=== PATIENT | female | born 1980 | race Native Hawaiian/Other Pacific Islander ===

== ENCOUNTER 2016-10-28 09:48 | Emergency (ER) | payer MEDICAID ==
[2016-10-28 09:56] VITALS: BP 106/74; PULSE 88; RESP 16; TEMP 98.4; O2SAT 100
--- NOTE | 2016-10-28 10:25 | C.PDOC ---
History Of Present Illness 36 yr old female presents to the ER with complaints of sore throat for the past 5 days. Patient reports of painful sores inside of her mouth, states she was given Azithromycin by her PMD but the symptoms have not improved and it is painful to eat or drink. Patient denies fever, chills, throat swelling, nausea, vomiting or neck pain. Time Seen by Provider: 10/28/16 10:04 Chief Complaint (Nursing): Dental Pain History Per: Patient History/Exam Limitations: no limitations Onset/Duration Of Symptoms: Days (5) Past Medical History Reviewed: Historical Data, Nursing Documentation, Vital Signs Vital Signs: Last Vital Signs Temp 98.4 F 10/28/16 09:55 Pulse 88 10/28/16 09:55 Resp 16 10/28/16 09:55 BP 106/74 10/28/16 09:55 Pulse Ox 100 10/28/16 10:26 - Medical History PMH: Depression Family History: States: No Known Family Hx - Social History Hx Alcohol Use: No Hx Substance Use: No - Immunization History Hx Tetanus Toxoid Vaccination: No Hx Influenza Vaccination: Yes Hx Pneumococcal Vaccination: No Review Of Systems Except As Marked, All Systems Reviewed And Found Negative. Constitutional: Negative for: Fever, Chills ENT: Positive for: Throat Pain (Sore throat), Other ((+) Painful sores inside of mouth.). Negative for: Throat Swelling Gastrointestinal: Negative for: Nausea, Vomiting Musculoskeletal: Negative for: Neck Pain Physical Exam - Physical Exam Appears: Non-toxic, No Acute Distress, Other ((+) Speaking in full sentences.) Skin: Warm, Dry, No Rash Head: Atraumatic, Normacephalic Oral Mucosa: Moist, No Drooling, Other ((+) Multiple aphthous ulcers.) Tongue: Normal Appearing, No Swelling, No Lesions Lips: Normal Appearing, No Swelling, No Lesions Throat: Normal, No Erythema, No Exudate, No Drooling Neck: Normal, Normal ROM, Supple Chest: Symmetrical, No Tenderness Cardiovascular: Rhythm Regular, No Murmur Respiratory: Normal Breath Sounds, No Rales, No Rhonchi, No Stridor, No Wheezing Extremity: Normal ROM, No Swelling Neurological/Psych: Oriented x3, Normal Speech, Normal Motor ED Course And Treatment O2 Sat by Pulse Oximetry: 100 (RA) Pulse Ox Interpretation: Normal Progress Note: PLAN: Lidocaine Viscous PO. Patient is informed it is viral and treated with lidocaine viscous. Patient is also sent home with Rx for lidocaine viscous. Instructed patient to follow up with PMD for further evaluation. Return to ED if symptoms worsened. Disposition Counseled Patient/Family Regarding: Diagnosis, Need For Followup, Rx Given - Disposition Referrals: Shaik De Jesus MD [Staff Provider] - Disposition: HOME/ ROUTINE Disposition Time: 10:35 Condition: STABLE Additional Instructions: FOLLOW UP WITH YOUR DOCTOR IN 1-2 DAYS USE MEDICATION NEEDED AVOID SPICY/ACIDIC FOODS DRINK PLENTY OF CLEAR FLUIDS RETURN TO ER IF SYMPTMS WORSEN Prescriptions: Lidocaine 2% Viscous 20 ml MM Q6 PRN #1 bottle PRN Reason: ORAL LESIONS/PAIN Instructions: Gingivostomatitis (ED) Forms: [employer] (Latvian) Print Language: KHMER - Clinical Impression Clinical Impression: Mouth sores, Gingivostomatitis - Scribe Statement The provider has reviewed the documentation as recorded by the Scribe Bindu Ceja Provider Attestation: All medical record entries made by the Swatiiboh were at my direction and personally dictated by me. I have reviewed the chart and agree that the record accurately reflects my personal performance of the history, physical exam, medical decision making, and the department course for this patient. I have also personally directed, reviewed, and agree with the discharge instructions and disposition.
== END 2016-10-28 10:40 | disposition home or self-care (01) ==
LOC: C.ER 09:48
DX: K05.10 Chronic gingivitis, plaque induced (principal); K13.79 Other lesions of oral mucosa

== ENCOUNTER 2016-10-30 16:23 | Emergency (ER) | payer MEDICAID ==
[2016-10-30 16:31] VITALS: O2SAT 99
[2016-10-30] MEDS ORDERED: Sodium Chloride 0.9% 1,000 ML IV ONE (19:30)
[2016-10-30 19:51] LABS: BASO # 0.1 K/uL (0.0-0.2); BASO % 0.8 % (0.0-2.0); EOS # 0.9 K/uL (0.0-0.7); EOS % 9.1 % (0.0-4.0); HEMATOCRIT 39.4 % (34.0-47.0); LYMPH # 2.3 K/uL (1.0-4.3); LYMPH % 24.2 % (20.0-40.0); MEAN CORPUSCULAR HEMOGLOBIN 25.8 pg (27.0-31.0); MEAN PLATELET VOLUME 8.9 fL (7.2-11.7); MONO # 0.6 K/uL (0.0-0.8); MONO % 6.7 % (0.0-10.0); NRBC % 0.1 % (0.0-2.0); RED CELL DISTRIBUTION WIDTH 13.7 % (11.5-14.5); WHITE BLOOD COUNT 9.6 K/uL (4.8-10.8)
[2016-10-30 19:57] LABS: RBC URINE 54 /hpf (0-3); URINE BACTERIA RARE (<OCC); URINE BILIRUBIN NEGATIVE (NEGATIVE); URINE BLOOD 1+ (NEGATIVE); URINE COLOR Yellow (YELLOW); URINE GLUCOSE (UA) NORMAL (Normal); URINE KETONE NEGATIVE (NEGATIVE); URINE LEUKOCYTE ESTERASE 3+ Leu/uL (Negative); URINE PROTEIN NEGATIVE (NEGATIVE); URINE UROBILINOGEN NORMAL mg/dL (0.2-1.0); WBC URINE 94 /hpf (0-5)
[2016-10-30 20:02] LABS: ALKALINE PHOSPHATASE 113 U/L (38-126); ALT/SGPT 31 U/L (9-52); AST/SGOT 25 U/L (14-36); BILIRUBIN,TOTAL 0.8 mg/dL (0.2-1.3); BLOOD UREA NITROGEN 11 mg/dL (7-17); CALCIUM 8.8 mg/dl (8.6-10.4); CARBON DIOXIDE 23 mmol/L (22-30); CHLORIDE 103 mmol/L (98-107); GFR AFRICAN-AMERICAN > 60; GLUCOSE,RANDOM 89 mg/dL (65-105); POTASSIUM 3.9 mmol/L (3.6-5.2); SODIUM 141 mmol/L (132-148); TOTAL PROTEIN 7.7 g/dL (6.3-8.3)
--- NOTE | 2016-10-30 20:40 | C.PDOC ---
Time Seen by Provider: 10/30/16 17:05 Chief Complaint (Nursing): ENT Problem History Per: Patient, Family Onset/Duration Of Symptoms: Days (about 1 week) Current Symptoms Are (Timing): Still Present Location Of Pain: Other (Mouth) Associated Symptoms: Fever, Sore Throat, Other (Mouth sores) Severity: Moderate Additional History Per: Prior Records Past Medical History Reviewed: Historical Data, Nursing Documentation, Vital Signs Vital Signs: Last Vital Signs Temp 99.6 F 10/30/16 19:15 Pulse 109 H 10/30/16 16:28 Resp 18 10/30/16 16:28 BP 122/82 10/30/16 16:28 Pulse Ox 99 10/30/16 16:28 - Medical History PMH: Depression Family History: States: Unknown Family Hx - Social History Hx Alcohol Use: No Hx Substance Use: No - Immunization History Hx Tetanus Toxoid Vaccination: No Hx Influenza Vaccination: Yes Hx Pneumococcal Vaccination: No Review Of Systems Except As Marked, All Systems Reviewed And Found Negative. Constitutional: Positive for: Fever. Negative for: Weakness Eyes: Negative for: Conjunctivae Inflammation, Eyelid Inflammation, Redness ENT: Positive for: Mouth Pain, Throat Pain Cardiovascular: Negative for: Chest Pain Respiratory: Negative for: Cough, Shortness of Breath Gastrointestinal: Negative for: Vomiting, Abdominal Pain Genitourinary: Positive for: Dysuria Musculoskeletal: Negative for: Neck Pain Skin: Negative for: Rash Neurological: Negative for: Weakness, Numbness, Seizures, Altered Mental Status Physical Exam - Physical Exam Appears: Non-toxic, No Acute Distress Skin: Normal Color, Warm, Dry, No Rash Head: Atraumatic, Normacephalic Eye(s): bilateral: Normal Inspection, PERRL, EOMI Oral Mucosa: Moist, No Drooling, No Trismus Tongue: Lesions, Fissured, Erythema Gingiva: Erythema, Ulceration Throat: Erythema, No Drooling, No Mass Neck: Normal ROM, Supple Lymphatic: No Adenopathy Cardiovascular: Rhythm Regular Respiratory: Normal Breath Sounds, No Accessory Muscle Use, No Stridor Gastrointestinal/Abdominal: Soft, No Tenderness Back: No CVA Tenderness Extremity: Normal ROM Neurological/Psych: Oriented x3, Normal Motor, Normal Sensation ED Course And Treatment - Laboratory Results Result Diagrams: 10/30/16 19:48 10/30/16 19:48 Interpretation Of Abnormal: UTI, otherwise unremarkable. Urine POC: Negative O2 Sat by Pulse Oximetry: 99 Pulse Ox Interpretation: Normal Progress - Interventions Interventions:: Observation, Intravenous fluid - Medications Administered Intravenous: NSAID - Data Reviewed Data Reviewed: Lab, Old records - Patient Status Patient status: Mostly improved - Continuity of Care Discussed patient case with:: Patient, ED Nurse - Patient Plan Patient Plan: Discharge, F/U with PCP Disposition Counseled Patient/Family Regarding: Studies Performed, Diagnosis, Need For Followup, Rx Given - Disposition Referrals: Shaik De Jesus MD [Staff Provider] - Disposition: HOME/ ROUTINE Disposition Time: 20:44 Condition: IMPROVED Additional Instructions: Drink plenty of fluids. Follow up with your doctor for further evaluation and treatment. Return to the ER if you develop trouble breathing or swallowing, worsening of symptoms or if you have any other concerns. Prescriptions: Cephalexin [cephalexin] 500 mg PO BID #14 cap Naproxen [Naprosyn] 1 tab PO BID PRN #20 tab PRN Reason: Pain Instructions: Gingivostomatitis (ED), Urinary Tract Infection in Women (ED) Forms: [employer] (American) - Clinical Impression Clinical Impression: Gingivostomatitis, Mouth sores, UTI (urinary tract infection)
[2016-10-30] MEDS ORDERED: Sodium Chloride 0.9% 1,000 ML ONE (20:46)
[2016-10-30 21:27] VITALS: BP 97/62; PULSE 76; RESP 16; TEMP 99
== END 2016-10-30 21:26 | disposition home or self-care (01) ==
LOC: C.ER 16:23
DX: K05.10 Chronic gingivitis, plaque induced (principal); N39.0 Urinary tract infection, site not specified
CPT/HCPCS: 80053; 81001; 84703; 85025; 86308; 87070; 87430; 96361; 96374; 99283; J1885; J7040

== ENCOUNTER 2016-11-08 12:10 | Inpatient (IN) | payer MEDICAID ==
[2016-11-08 14:47] LABS: BASO % 0.5 % (0.0-2.0); EOS # 0.9 K/uL (0.0-0.7); EOS % 12.2 % (0.0-4.0); HEMATOCRIT 40.6 % (34.0-47.0); LYMPH # 1.4 K/uL (1.0-4.3); LYMPH % 18.4 % (20.0-40.0); MEAN CELL VOLUME 78.9 fL (81.0-99.0); MEAN CORPUSCULAR HEMOGLOBIN 25.9 pg (27.0-31.0); MEAN CORPUSCULAR HGB CONC 32.9 g/dL (33.0-37.0); MEAN PLATELET VOLUME 8.2 fL (7.2-11.7); MONO # 0.6 K/uL (0.0-0.8); RED CELL DISTRIBUTION WIDTH 13.4 % (11.5-14.5); WHITE BLOOD COUNT 7.7 K/uL (4.8-10.8)
[2016-11-08] MEDS ORDERED: Sodium Chloride 0.9% 1,000 ML IV ONE (14:53)
[2016-11-08 14:56] LABS: CHLORIDE 100 mmol/L (98-107); POTASSIUM 4.4 mmol/L (3.6-5.2); SODIUM 140 mmol/L (132-148)
[2016-11-08 14:58] LABS: GFR AFRICAN-AMERICAN > 60
[2016-11-08 14:59] LABS: ALKALINE PHOSPHATASE 132 U/L (38-126); ALT/SGPT 46 U/L (9-52); AST/SGOT 27 U/L (14-36); BILIRUBIN,TOTAL 0.5 mg/dL (0.2-1.3); BLOOD UREA NITROGEN 11 mg/dL (7-17); CARBON DIOXIDE 24 mmol/L (22-30); GLUCOSE,RANDOM 89 mg/dL (65-105); TOTAL PROTEIN 7.6 g/dL (6.3-8.3)
[2016-11-08 15:00] LABS: CALCIUM 8.7 mg/dl (8.6-10.4)
--- NOTE | 2016-11-08 16:17 | C.PDOC ---
History Of Present Illness 36 y/o female presents to Emergency Department for evaluation of burning/ painful sores in her mouth that developed 15 days ago. Pt states that she is not able to eat anything due to the pain in her mouth and throat. Pt has been seen in ER twice for same complaints, and also seen by PMD who started her on PO Valtrex. Symptoms still have not improved. She denies fever, sensation of throat closing up, chest pain, SOB, palpitations, cough. Time Seen by Provider: 11/08/16 13:47 Chief Complaint (Nursing): Abnormal Skin Integrity History Per: Patient History/Exam Limitations: None Onset/Duration Of Symptoms: Days, Persistent Current Symptoms Are (Timing): Still Present Quality (Mouth/Throat): Tenderness, Redness. denies: Drainage Symptoms Have Been: Continuous Severity: Moderate Past Medical History Reviewed: Historical Data, Nursing Documentation, Vital Signs Vital Signs: Last Vital Signs Temp 98.3 F 11/11/16 07:00 Pulse 61 11/11/16 07:00 Resp 20 11/11/16 07:00 BP 101/67 11/11/16 07:00 Pulse Ox 98 11/11/16 07:00 - Medical History PMH: Depression - [facility] Procedures INSPECTION OF LARYNX, ENDO (11/08/16) Family History: States: No Known Family Hx - Social History Hx Alcohol Use: No Hx Substance Use: No - Immunization History Hx Tetanus Toxoid Vaccination: No Hx Influenza Vaccination: Yes Hx Pneumococcal Vaccination: No Review Of Systems Except As Marked, All Systems Reviewed And Found Negative. Constitutional: Negative for: Fever, Chills ENT: Positive for: Mouth Pain (painful sores in mouth), Throat Pain. Negative for: Ear Pain, Nose Discharge, Nose Congestion, Throat Swelling Cardiovascular: Negative for: Chest Pain, Palpitations Respiratory: Negative for: Cough, Shortness of Breath Gastrointestinal: Negative for: Nausea, Vomiting, Abdominal Pain, Diarrhea Skin: Negative for: Rash Neurological: Negative for: Headache, Dizziness Physical Exam - Physical Exam Appears: Well, Non-toxic, In Acute Distress (in mild pain) Skin: Normal Color, Warm, Dry, No Rash Head: Normacephalic Eye(s): bilateral: Normal Inspection Oral Mucosa: Moist, No Drooling, Other (diffuse aphthous ulcers on oral mucosa) Tongue: No Swelling, No Lesions, Other (white coating on the tongue) Lips: Normal Appearing, No Swelling, No Lesions Throat: Erythema, No Exudate, No Drooling Neck: Normal ROM, Supple Lymphatic: No Adenopathy Cardiovascular: Rhythm Regular Respiratory: Normal Breath Sounds, No Accessory Muscle Use, No Rales, No Rhonchi , No Stridor, No Wheezing Extremity: Normal ROM Neurological/Psych: Oriented x3 ED Course And Treatment - Laboratory Results Result Diagrams: 11/11/16 06:56 11/11/16 06:56 O2 Sat by Pulse Oximetry: 100 (on RA) Pulse Ox Interpretation: Normal Progress Note: Blood work ordered and reviewed. Pt was given Lidocaine PO, Toradol IVP, and IV NS bolus. Patient sent by PMD Dr. De Jesus for admission + ID consult with Dr. Phelps. - Physician Consult Information Physician Contacted: Tamar Swann Outcome Of Conversation: Discussed patient with Dr. Shahid Swann, agrees with admission for persistent gingostomatitis for ID consult with Dr. Phelps. Disposition - Disposition Disposition: HOSPITALIZED Disposition Time: 15:44 Condition: STABLE - Clinical Impression Clinical Impression: Decreased oral intake, Dehydration, Gingivostomatitis, Mouth sores - Scribe Statement The provider has reviewed the documentation as recorded by the Scribe Tawnya Swann All medical record entries made by the Scribe were at my direction and personally dictated by me. I have reviewed the chart and agree that the record accurately reflects my personal performance of the history, physical exam, medical decision making, and the department course for this patient. I have also personally directed, reviewed, and agree with the discharge instructions and disposition. Decision To Admit - Pt Status Changed To: Hospital Disposition Of: Inpatient - Admit Certification Admit to Inpatient:: After my assessment, the patient will require hospitalization for at least two midnights. This is because of the severity of symptoms shown, intensity of services needed, and/or the medical risk in this patient being treated as an outpatient. - InPatient: Physician Admission Certification: I certify that this patient requires 2 or more midnights of care for the following reason:: see notes - . Bed Request Type: Regular Admitting Physician: Tamar Swann Patient Diagnosis: Gingivostomatitis, Decreased oral intake, Dehydration
[2016-11-08] MEDS ORDERED: Home Med 1 UNIT (Naproxen [Naprosyn] 1 TAB) PO PRN (20:16)
--- NOTE | 2016-11-08 22:12 | CP.PCM.HP ---
Past Patient History - Infectious Disease Hx of Infectious Diseases: None - Past Medical History & Family History Past Medical History?: Yes - Past Social History Smoking Status: Never Smoked - CARDIAC Hx Cardiac Disorders: No - PULMONARY Hx Respiratory Disorders: No - NEUROLOGICAL Hx Neurological Disorder: No - HEENT Hx HEENT Problems: No - RENAL Hx Chronic Kidney Disease: No - ENDOCRINE/METABOLIC Hx Endocrine Disorders: No - HEMATOLOGICAL/ONCOLOGICAL Hx Blood Disorders: No - INTEGUMENTARY Hx Dermatological Problems: No - MUSCULOSKELETAL/RHEUMATOLOGICAL Hx Musculoskeletal Disorders: No Hx Falls: No - GASTROINTESTINAL Hx Gastrointestinal Disorders: No - GENITOURINARY/GYNECOLOGICAL Hx Genitourinary Disorders: No - PSYCHIATRIC Hx Depression: Yes Hx Substance Use: No - SURGICAL HISTORY Hx Surgeries: Yes Hx Tubal Ligation: Yes (b/l) - ANESTHESIA Hx Anesthesia: Yes Hx Anesthesia Reactions: No Hx Malignant Hyperthermia: No Has any member of the family had a problem w/ anesthesia?: No Meds Allergies/Adverse Reactions: Allergies Allergy/AdvReac Type Severity Reaction Status Date / Time No Known Allergies Allergy Verified 11/08/16 12:29 Results - Vital Signs Recent Vital Signs: Last Vital Signs Temp 98.8 F 11/08/16 20:07 Pulse 91 H 11/08/16 20:07 Resp 18 11/08/16 20:07 BP 111/68 11/08/16 20:07 Pulse Ox 98 11/08/16 20:07 - Labs Result Diagrams: 11/08/16 14:42 11/08/16 14:42 Labs: Laboratory Results - last 24 hr 11/08/16 11/08/16 11/08/16 14:42 14:42 14:42 WBC 7.7 RBC 5.15 Hgb 13.4 Hct 40.6 MCV 78.9 L MCH 25.9 L MCHC 32.9 L RDW 13.4 Plt Count 305 MPV 8.2 Neut % (Auto) 60.9 Lymph % (Auto) 18.4 L Grayson % (Auto) 8.0 Eos % (Auto) 12.2 H Baso % (Auto) 0.5 Neut # 4.7 Lymph # 1.4 Grayson # 0.6 Eos # 0.9 H Baso # 0.0 Sodium 140 Potassium 4.4 Chloride 100 Carbon Dioxide 24 Anion Gap 21 H BUN 11 Creatinine 0.7 Est GFR ( Amer) > 60 Est GFR (Non-Af Amer) > 60 Random Glucose 89 Calcium 8.7 Total Bilirubin 0.5 AST 27 ALT 46 Alkaline Phosphatase 132 H Total Protein 7.6 Albumin 3.8 Globulin 3.8 Albumin/Globulin Ratio 1.0 HIV 1&2 Antibody Screen Negative
[2016-11-08] MEDS: Piperacillin/Tazobact 3.375 GM in Sodium Chloride 100 ML IVPB SCH (22:44)
[2016-11-09 02:10] VITALS: RESP 20
[2016-11-09] MEDS: Piperacillin/Tazobact 3.375 GM in Sodium Chloride 100 ML IVPB SCH ×3 (05:49→21:57)
[2016-11-09] MEDS ORDERED: Pneumococcal 23-Valent Vaccine IM ONE (10:00)
[2016-11-09] MEDS ORDERED: Enoxaparin 40 mg Syringe SC SCH (10:00)
[2016-11-09] MEDS: Pantoprazole 40 mg EC Tab PO SCH (11:00)
[2016-11-09] MEDS: Mag&Al/Simet/Diphen/Lido 237 ML KIT PO SCH ×5 (11:00→22:01)
[2016-11-09] MEDS ORDERED: Naproxen 550 mg Tab PO PRN ×2 (11:07→11:43)
--- NOTE | 2016-11-09 12:55 | CP.PCM.CON ---
History of Present Illness - History of Present Illness History of Present Illness: 36 y/o female presents to Emergency Department for evaluation of burning and itching sores in her mouth that developed 15 days ago. Pt states that she is not able to eat anything due to the pain in her mouth and throat. Pt has been seen here twice with similar complaints. Pt states she has been taking the prescribed Cephalexin, and Naproxen without any improvement. Otherwise, patient denies throat swelling, fever, chills, cough, or shortness of breath. Review of Systems - Review of Systems All systems: reviewed and no additional remarkable complaints except - Constitutional Constitutional: As Per HPI - EENT Eyes: absent: As Per HPI, Blind Spots, Blurred Vision, Change in Vision, Decreased Night Vision, Diplopia, Discharge, Dry Eye, Exophthalmos, Floaters, Irritation, Itchy Eyes, Loss of Peripheral Vision, Pain, Photophobia, Requires Corrective Lenses, Sees Flashes, Spots in Vision, Tunnel Vision, Other Visual Disturbances, Loss of Vision, Other Ears: absent: As Per HPI, Decreased Hearing, Ear Discharge, Ear Pain, Tinnitus, Abnormal Hearing, Disequilibrium, Dizziness, Other Nose/Mouth/Throat: As Per HPI - Breasts Breasts: absent: As Per HPI, Change in Shape, Mass, Pain, Nipple Discharge, Nipple Inversion, Skin Changes, Swelling, Other - Cardiovascular Cardiovascular: absent: As Per HPI, Acrocyanosis, Chest Pain, Chest Pain at Rest , Chest Pain with Activity, Claudication, Diaphoresis, Dyspnea, Dyspnea on Exertion, Edema, Irregular Heart Rhythm, Pain Radiating to Arm/Neck/Jaw, Leg Edema, Leg Ulcers, Lightheadedness, Orthopnea, Palpitations, Paroxysmal Nocturnal Dyspnea, Pedal Edema, Radiating Pain, Rapid Heart Rate, Slow Heart Rate, Syncope, Other - Respiratory Respiratory: absent: As Per HPI, Cough, Dyspnea, Hemoptysis, Dyspnea on Exertion , Wheezing, Snoring, Stridor, Pain on Inspiration, Chest Congestion, Excessive Mucous Production, Change in Mucous Color, Pain with Coughing, Other - Gastrointestinal Gastrointestinal: absent: As Per HPI, Abdominal Pain, Belching, Bloating, Change in Bowel Habits, Change in Stool Character, Coffee Ground Emesis, Constipation, Cramping, Diarrhea, Dyspepsia, Dysphagia, Early Satiety, Excessive Flatus, Fecal Incontinence, Heartburn, Hematemesis, Hematochezia, Loose Stools, Melena, Nausea, Odynophagia, Temesmus, Vomiting, Other - Genitourinary Genitourinary: absent: As Per HPI, Change in Urinary Stream, Difficulty Urinating, Dysuria, Flank Pain, Hematuria, Pyuria, Nocturia, Urinary Incontinence, Urinary Frequency, Urinary Hesitance, Urinary Urgency, Voiding Freq/Small Amts, Freq UTI, Hx Renal/Bladder Calculi, Hx /Renal Surgery, Bladder Distension, Other - Reproductive: Female Reproductive:Female: absent: As Per HPI, Amenorrhea, Amenorrhea/ Control, Currently Menstual, Cycle <21 Days, Cycle >35 Days, Cycle Variable, Menses 1-7 Days, Menses >/= 8 Days, Menses Variable, Cycle > 4 Weeks Between, No Menses for 6 Months, Heavy Menses, Light Menses, Normal Menses, Spotting Between Cycles , S/P Hysterectomy, Menopausal, Post Menopausal, Premenarche, Abnormal Vaginal Bleeding, Dysmenorrhea, Dyspareunia, Genital Lesions, Genital Pruritis, Pelvic Pain, Prolapse Symptoms, Sexual Dysfunction, Vaginal Discharge, Vaginal Dryness , Vaginal Odor, Vaginal Pruritis, Other - Menstruation Menstruation: absent: As Per HPI, Amenorrhea, Amenorrhea/ Control, Currently Menstual, Cycle <21 Days, Cycle >35 Days, Cycle Variable, Menses 1-7 Days, Menses >/= 8 Days, Menses Variable, Cycle > 4 Weeks Between, No Menses for 6 Months, Heavy Menses, Light Menses, Normal Menses, Spotting Between Cycles , S/P Hysterectomy, Menopausal, Post Menopausal, Premenarche, Abnormal Vaginal Bleeding, Dysmenorrhea, Other - Musculoskeletal Musculoskeletal: absent: As Per HPI, Abnormal Gait, Arthralgias, Atrophy, Back Pain, Deformity, Joint Swelling, Limited Range of Motion, Loss of Height, Muscle Cramps, Muscle Weakness, Myalgias, Neck Pain, Numbness, Radiating Pain into Limb, Stiffness, Tingling, Other - Integumentary Integumentary: absent: As Per HPI, Acne, Alopecia, Bleeding Lesions, Change in Hair, Change in Nails, Change in Pigmentation, Changing Lesions, Dry Skin, Erythema, Furuncle, Hirsutism, Lesions, New Lesions, Non-Healing Lesions, Photosensitivity, Pruritus, Rash, Skin Pain, Skin Ulcer, Sores, Striae, Swelling , Unusual Bruising, Wounds, Jaundice, Other - Neurological Neurological: absent: As Per HPI, Abnormal Gait, Abnormal Hearing, Abnormal Movements, Abnormal Speech, Behavioral Changes, Burning Sensations, Confusion, Convulsions, Disequilibrium, Dizziness, Numbness, Focal Weakness, Frequent Falls , Headaches, Lack of Coordination, Loss of Vision, Memory Loss, Paresthesias, Radicular Pain, Restless Legs, Sensory Deficit, Syncope, Tingling, Tremor, Vertigo, Weakness, Other Visual Disturbances, Other - Psychiatric Psychiatric: absent: As Per HPI, Abnormal Sleep Pattern, Anhedonia, Anxiety, Auditory Hallucinations, Behavioral Changes, Change in Appetite, Change in Libido, Confusion, Depression, Difficulty Concentrating, Hallucinations, Homicidal Ideation, Hopelessness, Irritability, Memory Loss, Mood Swings, Panic Attacks, Paranoia, Suicidal Ideation, Visual Hallucinations, Tactile Hallucinations, Other - Endocrine Endocrine: absent: As Per HPI, Change in Body Appearance, Change in Libido, Cold Intolorance, Deepening of Voice, Excessive Sweating, Fatigue, Flushing, Heat Intolorance, Increase in Ring/Shoe/Hat Size, Palpitations, Polydipsia, Polyphagia, Polyuria, Other - Hematologic/Lymphatic Hematologic: absent: As Per HPI, Easy Bleeding, Easy Bruising, Lymphadenopathy, Other Past Patient History - Infectious Disease Hx of Infectious Diseases: None - Past Medical History & Family History Past Medical History?: Yes - Past Social History Smoking Status: Never Smoked - CARDIAC Hx Cardiac Disorders: No - PULMONARY Hx Respiratory Disorders: No - NEUROLOGICAL Hx Neurological Disorder: No - HEENT Hx HEENT Problems: No - RENAL Hx Chronic Kidney Disease: No - ENDOCRINE/METABOLIC Hx Endocrine Disorders: No - HEMATOLOGICAL/ONCOLOGICAL Hx Blood Disorders: No - INTEGUMENTARY Hx Dermatological Problems: No - MUSCULOSKELETAL/RHEUMATOLOGICAL Hx Musculoskeletal Disorders: No Hx Falls: No - GASTROINTESTINAL Hx Gastrointestinal Disorders: No - GENITOURINARY/GYNECOLOGICAL Hx Genitourinary Disorders: No - PSYCHIATRIC Hx Depression: Yes Hx Substance Use: No - SURGICAL HISTORY Hx Surgeries: Yes Hx Tubal Ligation: Yes (b/l) - ANESTHESIA Hx Anesthesia: Yes Hx Anesthesia Reactions: No Hx Malignant Hyperthermia: No Has any member of the family had a problem w/ anesthesia?: No Meds Allergies/Adverse Reactions: Allergies Allergy/AdvReac Type Severity Reaction Status Date / Time No Known Allergies Allergy Verified 11/08/16 12:29 - Medications Medications: Current Medications Citalopram Hydrobromide (Celexa) 20 mg PO DAILY [facility] Last Admin: 11/09/16 11:00 Dose: 20 mg Piperacillin Sod/Tazobactam (Sod 3.375 gm/ Sodium Chloride) 100 mls @ 200 mls/ hr IVPB Q8 [facility] Last Admin: 11/09/16 05:49 Dose: 200 mls/hr Naproxen (Anaprox Ds) 550 mg PO BID PRN PRN Reason: Pain Pantoprazole Sodium (Protonix Ec Tab) 40 mg PO DAILY [facility] Last Admin: 11/09/16 11:00 Dose: 40 mg Risperidone (Risperdal Tab) 1 mg PO HS [facility] Last Admin: 11/08/16 21:21 Dose: 1 mg Saliva Substitute (First Magic Mouthwash) 5 ml PO QID [facility] Last Admin: 11/09/16 11:00 Dose: 5 ml Valacyclovir HCl (Valtrex) 500 mg PO TID [facility] Last Admin: 11/09/16 11:00 Dose: 500 mg Physical Exam - Constitutional Appears: Non-toxic, Chronically Ill - Head Exam Head Exam: NORMOCEPHALIC - Eye Exam Eye Exam: absent: Scleral icterus - ENT Exam ENT Exam: Mucous Membranes Dry. absent: Normal Oropharynx Additional comments: thrush exudates erythema no airway obstruction - Neck Exam Neck exam: Negative for: Lymphadenopathy - Respiratory Exam Respiratory Exam: Decreased Breath Sounds - Cardiovascular Exam Cardiovascular Exam: REGULAR RHYTHM - GI/Abdominal Exam GI & Abdominal Exam: Diminished Bowel Sounds - Rectal Exam Rectal Exam: Deferred - Exam Exam: NORMAL INSPECTION - Extremities Exam Extremities exam: Negative for: calf tenderness, pedal edema - Back Exam Back exam: absent: CVA tenderness (L), CVA tenderness (R) - Neurological Exam Neurological exam: Alert, CN II-XII Intact, Oriented x3, Reflexes Normal - Psychiatric Exam Psychiatric exam: Normal Mood - Skin Skin Exam: Dry Results - Vital Signs Recent Vital Signs: Last Vital Signs Temp 99 F 11/09/16 08:00 Pulse 80 11/09/16 08:00 Resp 20 11/09/16 08:00 BP 96/61 L 11/09/16 08:00 Pulse Ox 97 11/09/16 08:00 - Labs Result Diagrams: 11/08/16 14:42 11/08/16 14:42 Labs: Laboratory Results - last 24 hr 11/08/16 11/08/16 11/08/16 14:42 14:42 14:42 WBC 7.7 RBC 5.15 Hgb 13.4 Hct 40.6 MCV 78.9 L MCH 25.9 L MCHC 32.9 L RDW 13.4 Plt Count 305 MPV 8.2 Neut % (Auto) 60.9 Lymph % (Auto) 18.4 L Dawson % (Auto) 8.0 Eos % (Auto) 12.2 H Baso % (Auto) 0.5 Neut # 4.7 Lymph # 1.4 Dawson # 0.6 Eos # 0.9 H Baso # 0.0 Sodium 140 Potassium 4.4 Chloride 100 Carbon Dioxide 24 Anion Gap 21 H BUN 11 Creatinine 0.7 Est GFR ( Amer) > 60 Est GFR (Non-Af Amer) > 60 Random Glucose 89 Calcium 8.7 Total Bilirubin 0.5 AST 27 ALT 46 Alkaline Phosphatase 132 H Total Protein 7.6 Albumin 3.8 Globulin 3.8 Albumin/Globulin Ratio 1.0 HIV 1&2 Antibody Screen Negative Assessment & Plan (1) Gingivostomatitis Status: Acute (2) Mouth sores Status: Acute - Assessment and Plan (Free Text) Assessment: add zosyn diflucan ent and dental eval may need bx
[2016-11-09] MEDS: Fluconazole IV 200mg/100 ml NS 100 ML IVPB SCH (13:30)
[2016-11-09] MEDS: Mag&Al/Simet/Diphen/Lido 237 ML KIT BU SCH ×3 (14:19→22:03)
--- NOTE | 2016-11-09 20:10 | CP.PCM.PN ---
Subjective - Date & Time of Evaluation Date of Evaluation: 11/09/16 Time of Evaluation: 08:20 - Subjective Subjective: clinically same Objective - Vital Signs/Intake and Output Vital Signs (last 24 hours): Temp Pulse Resp BP Pulse Ox 100.1 F H 84 20 109/74 97 11/09/16 16:00 11/09/16 16:00 11/09/16 16:00 11/09/16 16:00 11/09/16 16:00 Intake and Output: 11/09/16 11/10/16 18:59 06:59 Intake Total 560 Balance 560 - Medications Medications: Current Medications Citalopram Hydrobromide (Celexa) 20 mg PO DAILY [facility] Last Admin: 11/09/16 11:00 Dose: 20 mg Piperacillin Sod/Tazobactam (Sod 3.375 gm/ Sodium Chloride) 100 mls @ 200 mls/ hr IVPB Q8 [facility] Last Admin: 11/09/16 13:30 Dose: 200 mls/hr Fluconazole (Diflucan Iv 200 Mg/100 Ml Ns) 100 mls @ 100 mls/hr IVPB DAILY [facility] Last Admin: 11/09/16 13:30 Dose: 100 mls/hr Naproxen (Anaprox Ds) 550 mg PO BID PRN PRN Reason: Pain Pantoprazole Sodium (Protonix Ec Tab) 40 mg PO DAILY [facility] Last Admin: 11/09/16 11:00 Dose: 40 mg Risperidone (Risperdal Tab) 1 mg PO HS [facility] Last Admin: 11/08/16 21:21 Dose: 1 mg Saliva Substitute (First Magic Mouthwash) 5 ml PO QID [facility] Last Admin: 11/09/16 17:46 Dose: 5 ml Saliva Substitute (First Magic Mouthwash) 5 ml BU QID [facility] Last Admin: 11/09/16 14:19 Dose: 5 ml Valacyclovir HCl (Valtrex) 500 mg PO TID [facility] Last Admin: 11/09/16 17:47 Dose: 500 mg - Labs Labs: 11/08/16 14:42 11/08/16 14:42 - Constitutional Appears: Well - Head Exam Head Exam: ATRAUMATIC, NORMAL INSPECTION, NORMOCEPHALIC - Eye Exam Eye Exam: EOMI, Normal appearance, PERRL Pupil Exam: NORMAL ACCOMODATION, PERRL - ENT Exam ENT Exam: Mucous Membranes Moist, Normal Exam - Neck Exam Neck Exam: Full ROM, Normal Inspection. absent: Lymphadenopathy - Respiratory Exam Respiratory Exam: Decreased Breath Sounds - Cardiovascular Exam Cardiovascular Exam: REGULAR RHYTHM, +S1, +S2 - GI/Abdominal Exam GI & Abdominal Exam: Soft, Diminished Bowel Sounds - Rectal Exam Rectal Exam: Deferred
--- NOTE | 2016-11-09 20:23 | OP ---
PROCEDURE DATE: 11/09/2016 REFERRING PHYSICIAN: Radha Swann MD PREOPERATIVE DIAGNOSIS: Dysphagia. POSTOPERATIVE DIAGNOSIS: Dysphagia. PROCEDURE: Flexible laryngoscopy. DESCRIPTION OF PROCEDURE: The patient was placed in a seated position, flexible laryngoscope was inserted into the nasal cavity and was passed to the nasopharynx, oropharynx and hypopharynx. The pharyngeal andrea, base of tongue, vallecula, epiglottis, AE folds, false cords, true cords, piriform sinuses, arytenoids were brought into view. Erythema of the mucosa was noted in the pharynx and along the glottis. There was also white patches noted. The scope was removed. The patient tolerated the procedure well. The patient is assessed as having candidiasis. Bryan Prasad MD
[2016-11-10] MEDS: Piperacillin/Tazobact 3.375 GM in Sodium Chloride 100 ML IVPB SCH ×3 (05:10→22:00)
--- NOTE | 2016-11-10 09:16 | CP.PCM.PN ---
Subjective - Date & Time of Evaluation Date of Evaluation: 11/10/16 Time of Evaluation: 09:00 - Subjective Subjective: PGY3 on medicine Dr. Swann service: Pt seen and examined at bedside this morning. No acute events overnight. Pt reports improvement of her symptoms. Objective - Vital Signs/Intake and Output Vital Signs (last 24 hours): Temp Pulse Resp BP Pulse Ox 99.4 F 80 20 105/69 97 11/10/16 07:55 11/10/16 07:55 11/10/16 07:55 11/10/16 07:55 11/10/16 07:55 Intake and Output: 11/10/16 11/10/16 06:59 18:59 Intake Total 640 Balance 640 - Medications Medications: Current Medications Citalopram Hydrobromide (Celexa) 20 mg PO DAILY [facility] Last Admin: 11/09/16 11:00 Dose: 20 mg Piperacillin Sod/Tazobactam (Sod 3.375 gm/ Sodium Chloride) 100 mls @ 200 mls/ hr IVPB Q8 [facility] Last Admin: 11/10/16 05:10 Dose: 200 mls/hr Fluconazole (Diflucan Iv 200 Mg/100 Ml Ns) 100 mls @ 100 mls/hr IVPB DAILY [facility] Last Admin: 11/09/16 13:30 Dose: 100 mls/hr Naproxen (Anaprox Ds) 550 mg PO BID PRN PRN Reason: Pain Pantoprazole Sodium (Protonix Ec Tab) 40 mg PO DAILY [facility] Last Admin: 11/09/16 11:00 Dose: 40 mg Risperidone (Risperdal Tab) 1 mg PO HS [facility] Last Admin: 11/09/16 22:03 Dose: 1 mg Saliva Substitute (First Magic Mouthwash) 5 ml PO QID [facility] Last Admin: 11/09/16 22:01 Dose: 5 ml Saliva Substitute (First Magic Mouthwash) 5 ml BU QID [facility] Last Admin: 11/09/16 22:03 Dose: Not Given Valacyclovir HCl (Valtrex) 500 mg PO TID [facility] Last Admin: 11/09/16 17:47 Dose: 500 mg - Labs Labs: 11/08/16 14:42 11/08/16 14:42 - Constitutional Appears: Non-toxic, No Acute Distress - Head Exam Head Exam: NORMOCEPHALIC - Eye Exam Eye Exam: Normal appearance - ENT Exam ENT Exam: Mucous Membranes Dry - Respiratory Exam Respiratory Exam: Clear to Ausculation Bilateral, NORMAL BREATHING PATTERN - Cardiovascular Exam Cardiovascular Exam: REGULAR RHYTHM, +S1, +S2. absent: Gallop, Rubs - GI/Abdominal Exam GI & Abdominal Exam: Soft, Normal Bowel Sounds. absent: Tenderness - Neurological Exam Neurological Exam: Alert, Awake, Oriented x3 - Psychiatric Exam Psychiatric exam: Normal Mood - Skin Skin Exam: Intact Assessment and Plan - Assessment and Plan (Free Text) Assessment: Candadiasis Failed outpatient Cephalexin treatment. ENT Dr. Prasad consulted, help appreciated. S/P flexible laryngoscopy which found candidiasis pharynx and along the glottis. ID Dr. Phelps consulted, help appreciated. HIV checked and was negative. Pt started on Zosyn and Diflucan per ID. Magic mouthwash QID. Pt can be discharged with Augmentin and Diflucan for an additional week per Dr. Phelps. Hx of depression Continue home med Celexa and Risperdal. Prophylactic measure Protonix, SCD Management as per Dr. Swann.
[2016-11-10] MEDS: Fluconazole IV 200mg/100 ml NS 100 ML IVPB SCH (09:22)
[2016-11-10] MEDS: Mag&Al/Simet/Diphen/Lido 237 ML KIT PO SCH (09:32)
[2016-11-10] MEDS: Pantoprazole 40 mg EC Tab PO SCH (10:00)
[2016-11-10] MEDS: Mag&Al/Simet/Diphen/Lido 237 ML KIT BU SCH ×4 (10:00→22:14)
--- NOTE | 2016-11-10 13:49 | CP.PCM.PN ---
Subjective - Date & Time of Evaluation Date of Evaluation: 11/10/16 Time of Evaluation: 08:00 - Subjective Subjective: less pain and swelling cont iv then po rx Objective - Vital Signs/Intake and Output Vital Signs (last 24 hours): Temp Pulse Resp BP Pulse Ox 99.4 F 80 20 105/69 97 11/10/16 07:55 11/10/16 07:55 11/10/16 07:55 11/10/16 07:55 11/10/16 07:55 Intake and Output: 11/10/16 11/10/16 06:59 18:59 Intake Total 640 Balance 640 - Medications Medications: Current Medications Citalopram Hydrobromide (Celexa) 20 mg PO DAILY [facility] Last Admin: 11/10/16 09:22 Dose: 20 mg Piperacillin Sod/Tazobactam (Sod 3.375 gm/ Sodium Chloride) 100 mls @ 200 mls/ hr IVPB Q8 [facility] Last Admin: 11/10/16 13:34 Dose: 200 mls/hr Fluconazole (Diflucan Iv 200 Mg/100 Ml Ns) 100 mls @ 100 mls/hr IVPB DAILY [facility] Last Admin: 11/10/16 09:22 Dose: 100 mls/hr Naproxen (Anaprox Ds) 550 mg PO BID PRN PRN Reason: Pain Pantoprazole Sodium (Protonix Ec Tab) 40 mg PO DAILY [facility] Last Admin: 11/09/16 11:00 Dose: 40 mg Risperidone (Risperdal Tab) 1 mg PO HS [facility] Last Admin: 11/09/16 22:03 Dose: 1 mg Saliva Substitute (First Magic Mouthwash) 5 ml BU QID [facility] Last Admin: 11/09/16 22:03 Dose: Not Given Valacyclovir HCl (Valtrex) 500 mg PO TID [facility] Last Admin: 11/10/16 13:32 Dose: 500 mg - Labs Labs: 11/08/16 14:42 11/08/16 14:42 - Constitutional Appears: Non-toxic, Chronically Ill - Head Exam Head Exam: NORMOCEPHALIC - Eye Exam Eye Exam: PERRL. absent: Scleral icterus - ENT Exam ENT Exam: Mucous Membranes Dry - Neck Exam Neck Exam: absent: Lymphadenopathy - Respiratory Exam Respiratory Exam: Decreased Breath Sounds - Cardiovascular Exam Cardiovascular Exam: REGULAR RHYTHM, +S1, +S2 - GI/Abdominal Exam GI & Abdominal Exam: Distended, Soft - Rectal Exam Rectal Exam: Deferred - Exam Exam: NORMAL INSPECTION - Extremities Exam Extremities Exam: absent: Pedal Edema - Back Exam Back Exam: absent: CVA tenderness (L), CVA tenderness (R) Assessment and Plan (1) Gingivostomatitis Status: Acute (2) Mouth sores Status: Acute
[2016-11-10] MEDS ORDERED: Vitamins A & D Oint UD Foilpak TOP PRN (16:00)
--- NOTE | 2016-11-10 18:54 | CP.PCM.PN ---
Subjective - Date & Time of Evaluation Date of Evaluation: 11/10/16 Time of Evaluation: 08:00 - Subjective Subjective: clinically same Objective - Vital Signs/Intake and Output Vital Signs (last 24 hours): Temp Pulse Resp BP Pulse Ox 100.8 F H 90 20 119/75 97 11/10/16 15:00 11/10/16 15:00 11/10/16 15:00 11/10/16 15:00 11/10/16 15:00 Intake and Output: 11/10/16 11/10/16 06:59 18:59 Intake Total 640 880 Balance 640 880 - Medications Medications: Current Medications Citalopram Hydrobromide (Celexa) 20 mg PO DAILY [facility] Last Admin: 11/10/16 09:22 Dose: 20 mg Piperacillin Sod/Tazobactam (Sod 3.375 gm/ Sodium Chloride) 100 mls @ 200 mls/ hr IVPB Q8 [facility] Last Admin: 11/10/16 13:34 Dose: 200 mls/hr Fluconazole (Diflucan Iv 200 Mg/100 Ml Ns) 100 mls @ 100 mls/hr IVPB DAILY [facility] Last Admin: 11/10/16 09:22 Dose: 100 mls/hr Naproxen (Anaprox Ds) 550 mg PO BID PRN PRN Reason: Pain Pantoprazole Sodium (Protonix Ec Tab) 40 mg PO DAILY [facility] Last Admin: 11/09/16 11:00 Dose: 40 mg Risperidone (Risperdal Tab) 1 mg PO HS [facility] Last Admin: 11/09/16 22:03 Dose: 1 mg Saliva Substitute (First Magic Mouthwash) 5 ml BU QID [facility] Last Admin: 11/09/16 22:03 Dose: Not Given Valacyclovir HCl (Valtrex) 500 mg PO TID [facility] Last Admin: 11/10/16 18:00 Dose: 500 mg Vitamin A (Vitamin A & D Oint Ud Foilpak) 0.5 ea TOP Q4 PRN PRN Reason: DRY LIPS - Labs Labs: 11/08/16 14:42 11/08/16 14:42 - Constitutional Appears: Well - Head Exam Head Exam: ATRAUMATIC, NORMAL INSPECTION, NORMOCEPHALIC - Eye Exam Eye Exam: EOMI, Normal appearance, PERRL Pupil Exam: NORMAL ACCOMODATION, PERRL - ENT Exam ENT Exam: Mucous Membranes Moist, Normal Exam - Neck Exam Neck Exam: Full ROM, Normal Inspection. absent: Lymphadenopathy - Respiratory Exam Respiratory Exam: Decreased Breath Sounds - Cardiovascular Exam Cardiovascular Exam: REGULAR RHYTHM, +S1, +S2 - GI/Abdominal Exam GI & Abdominal Exam: Soft, Diminished Bowel Sounds - Rectal Exam Rectal Exam: Deferred
[2016-11-11] MEDS: Piperacillin/Tazobact 3.375 GM in Sodium Chloride 100 ML IVPB SCH ×2 (05:17→14:03)
[2016-11-11 07:02] LABS: BASO # 0.1 K/uL (0.0-0.2); BASO % 0.7 % (0.0-2.0); EOS # 1.3 K/uL (0.0-0.7); EOS % 17.9 % (0.0-4.0); HEMATOCRIT 35.1 % (34.0-47.0); LYMPH # 1.6 K/uL (1.0-4.3); LYMPH % 21.3 % (20.0-40.0); MEAN CELL VOLUME 77.9 fL (81.0-99.0); MEAN CORPUSCULAR HEMOGLOBIN 25.9 pg (27.0-31.0); MEAN CORPUSCULAR HGB CONC 33.2 g/dL (33.0-37.0); MEAN PLATELET VOLUME 8.3 fL (7.2-11.7); MONO # 0.5 K/uL (0.0-0.8); MONO % 6.6 % (0.0-10.0); RED CELL DISTRIBUTION WIDTH 13.2 % (11.5-14.5); WHITE BLOOD COUNT 7.3 K/uL (4.8-10.8)
[2016-11-11 07:35] LABS: CHLORIDE 102 mmol/L (98-107); POTASSIUM 3.6 mmol/L (3.6-5.2); SODIUM 140 mmol/L (132-148)
[2016-11-11 07:37] LABS: ALB/GLOB RATIO 0.9 (1.0-2.1); ALKALINE PHOSPHATASE 116 U/L (38-126); AST/SGOT 29 U/L (14-36); BILIRUBIN,TOTAL 0.7 mg/dL (0.2-1.3); CARBON DIOXIDE 22 mmol/L (22-30); GFR AFRICAN-AMERICAN > 60; TOTAL PROTEIN 6.4 g/dL (6.3-8.3)
[2016-11-11 07:38] LABS: ALT/SGPT 41 U/L (9-52); BLOOD UREA NITROGEN 9 mg/dL (7-17); CALCIUM 7.8 mg/dl (8.6-10.4); GLUCOSE,RANDOM 86 mg/dL (65-105)
[2016-11-11 07:56] VITALS: BP 101/67; PULSE 61; TEMP 98.3
[2016-11-11] MEDS: Fluconazole IV 200mg/100 ml NS 100 ML IVPB SCH (09:45)
[2016-11-11] MEDS: Mag&Al/Simet/Diphen/Lido 237 ML KIT BU SCH ×2 (09:46→14:02)
[2016-11-11] MEDS: Pantoprazole 40 mg EC Tab PO SCH (09:46)
--- NOTE | 2016-11-11 15:23 | CP.PCM.PN ---
Subjective - Date & Time of Evaluation Date of Evaluation: 11/11/16 Time of Evaluation: 10:00 - Subjective Subjective: PGY3 on medicine Dr. Swann service: Pt seen and examined at bedside this morning. Pt reports resolution of symptoms and was able to tolerate regular food. Pt to be discharged today per Dr. Swann and Dr. Phelps. Pt to continue home meds for depression with Augmentin and Diflucan for 7 days. Pt also instructed to see a dentist as per Dr. Phelps and see PMD within 1-2 weeks after discharge. Objective - Vital Signs/Intake and Output Vital Signs (last 24 hours): Temp Pulse Resp BP Pulse Ox 98.3 F 61 20 101/67 98 11/11/16 07:00 11/11/16 07:00 11/11/16 07:00 11/11/16 07:00 11/11/16 07:00 Intake and Output: 11/11/16 11/11/16 06:59 18:59 Intake Total 650 830 Balance 650 830 - Medications Medications: Current Medications Citalopram Hydrobromide (Celexa) 20 mg PO DAILY [facility] Last Admin: 11/11/16 09:45 Dose: 20 mg Piperacillin Sod/Tazobactam (Sod 3.375 gm/ Sodium Chloride) 100 mls @ 200 mls/ hr IVPB Q8 [facility] Last Admin: 11/11/16 14:03 Dose: 200 mls/hr Fluconazole (Diflucan Iv 200 Mg/100 Ml Ns) 100 mls @ 100 mls/hr IVPB DAILY [facility] Last Admin: 11/11/16 09:45 Dose: 100 mls/hr Naproxen (Anaprox Ds) 550 mg PO BID PRN PRN Reason: Pain Last Admin: 11/10/16 22:16 Dose: 550 mg Pantoprazole Sodium (Protonix Ec Tab) 40 mg PO DAILY [facility] Last Admin: 11/11/16 09:46 Dose: 40 mg Risperidone (Risperdal Tab) 1 mg PO HS [facility] Last Admin: 11/10/16 22:14 Dose: 1 mg Saliva Substitute (First Magic Mouthwash) 5 ml BU QID [facility] Last Admin: 11/11/16 14:02 Dose: 5 ml Valacyclovir HCl (Valtrex) 500 mg PO TID [facility] Last Admin: 11/11/16 14:01 Dose: 500 mg Vitamin A (Vitamin A & D Oint Ud Foilpak) 0.5 ea TOP Q4 PRN PRN Reason: DRY LIPS Last Admin: 11/11/16 05:20 Dose: 0.5 ea - Labs Labs: 11/11/16 06:56 11/11/16 06:56 - Constitutional Appears: Non-toxic, No Acute Distress, Chronically Ill - Head Exam Head Exam: NORMOCEPHALIC - Eye Exam Eye Exam: Normal appearance - ENT Exam ENT Exam: Mucous Membranes Dry (improved) - Cardiovascular Exam Cardiovascular Exam: REGULAR RHYTHM, +S1, +S2. absent: Gallop, Rubs - GI/Abdominal Exam GI & Abdominal Exam: Soft, Normal Bowel Sounds - Neurological Exam Neurological Exam: Alert, Awake, Oriented x3 - Psychiatric Exam Psychiatric exam: Normal Mood - Skin Skin Exam: Intact
[2016-11-12 17:32] VITALS: O2SAT 100
[2016-11-12 19:37] LABS: Interpretation Negative (Negative)
== END 2016-11-11 15:25 | disposition home or self-care (01) | DRG 185 ==
LOC: C.ER 12:10 → C.9E 15:44 → C.3T 19:57
PROVIDERS: ADMIT Internal Medicine Nephrology; ATTEND Internal Medicine Nephrology
PROC: 0CJS8ZZ Inspection of Larynx, Via Natural or Artificial Opening Endoscopic (ICD-10-PCS; principal; 2016-11-09)
DX: K05.10 Chronic gingivitis, plaque induced (principal); F32.9 Major depressive disorder, single episode, unspecified

== ENCOUNTER 2017-05-12 14:23 | Emergency (ER) | payer MEDICAID ==
[2017-05-12 14:48] VITALS: O2SAT 99
[2017-05-12] MEDS ORDERED: Aluminum Hydroxide/Magnesium Hydroxide Susp (30 mL) PO STA (14:56)
[2017-05-12] MEDS ORDERED: Nystatin 100,000 Units/ml Oral Susp 5 ml UD PO STA (14:57)
--- NOTE | 2017-05-12 15:00 | C.PDOC ---
History Of Present Illness 37-year-old female, presents to the emergency department accompanied by with complaints of mouth lesions and sores ongoing for four days. patient prescribed Augmentin and Fluconazole four days ago by PMD, that she has been taking with minimal relief. Denies fever, rash. Patient is on antipsychotic medications as listed for a long time. Patient also complains of constipation. Denies fever, shortness of breath, nausea/vomiting, throat pain or swelling. Time Seen by Provider: 05/12/17 14:50 Chief Complaint (Nursing): Abnormal Skin Integrity History Per: Patient History/Exam Limitations: no limitations Onset/Duration Of Symptoms: Days Current Symptoms Are (Timing): Still Present Past Medical History Reviewed: Historical Data, Nursing Documentation, Vital Signs Vital Signs: Last Vital Signs Temp 98.2 F 05/12/17 16:51 Pulse 72 05/12/17 16:51 Resp 16 05/12/17 16:51 BP 110/72 05/12/17 16:51 Pulse Ox 99 05/12/17 16:51 - Medical History PMH: Depression Denies: Chronic Kidney Disease - [facility] INSPECTION OF LARYNX, ENDO (11/08/16) Family History: States: No Known Family Hx - Social History Hx Alcohol Use: No Hx Substance Use: No - Immunization History Hx Tetanus Toxoid Vaccination: No Hx Influenza Vaccination: Yes Hx Pneumococcal Vaccination: No Review Of Systems Constitutional: Negative for: Fever ENT: Positive for: Mouth Pain (ulcers). Negative for: Ear Pain, Nose Discharge , Throat Pain, Throat Swelling Respiratory: Negative for: Cough, Shortness of Breath Gastrointestinal: Negative for: Vomiting Skin: Negative for: Rash Neurological: Negative for: Headache, Dizziness Physical Exam - Physical Exam Appears: Non-toxic, No Acute Distress, Other (uncomfortable) Skin: Normal Color, Warm, Dry, No Rash Head: Normacephalic Eye(s): bilateral: PERRL Nose: Normal Oral Mucosa: Moist Tongue: Lesions Throat: No Erythema, No Exudate, Other (ulcerated lesions within oral cavity consistent with mouth ulcers. No signs of pertonsillar abscess) Neck: Normal ROM, Supple Chest: Symmetrical Cardiovascular: Rhythm Regular, No Murmur Respiratory: Normal Breath Sounds, No Accessory Muscle Use Extremity: Normal ROM, No Deformity, No Swelling Neurological/Psych: Oriented x3, Normal Speech ED Course And Treatment - Laboratory Results Result Diagrams: 05/12/17 15:06 05/12/17 15:06 O2 Sat by Pulse Oximetry: 99 Medical Decision Making Medical Decision Making: Plan: * Labs * Lidocaine, Maalox, Toradol * Reassess and Disposition PAtient instructed to use OTC magic mouth wash and nsaids for pain at home. instructed to f/u outpatient with pmd/clinic. Disposition Counseled Patient/Family Regarding: Studies Performed, Diagnosis, Need For Followup, Rx Given - Disposition Referrals: Lilo Pace DMD [Staff Provider] - Disposition: HOME/ ROUTINE Disposition Time: 16:42 Condition: STABLE Additional Instructions: follow up with Dr. Diaz in 2 days call to make an appointment take medications as prescribed speak to your psychiatrist in regards to medications and possible side effects return to ER if symptoms worsens or progress Prescriptions: Acetaminophen with Codeine [Acetaminop-Codeine 120-12 mg/5] 10 ml PO QID PRN # 200 solution PRN Reason: Pain, Moderate (4-7) Mag&Al/Simet/Diphen/Lido [First Magic Mouthwash] 5 ml PO TID PRN #240 kit PRN Reason: Pain, Moderate (4-7) Polyethylene Glycol 3350 [Miralax] 17 g PO DAILY PRN #10 packet PRN Reason: Constipation Instructions: Constipation in Adults, Mouth Sores (DC) Forms: [facility] ([place]), General Discharge Instructions - Clinical Impression Clinical Impression: Mouth sores, Constipation - Scribe Statement The provider has reviewed the documentation as recorded by the Scribe (Michele Mccauley) All medical record entries made by the Scribe were at my direction and personally dictated by me. I have reviewed the chart and agree that the record accurately reflects my personal performance of the history, physical exam, medical decision making, and the department course for this patient. I have also personally directed, reviewed, and agree with the discharge instructions and disposition.
[2017-05-12] MEDS ORDERED: Aluminum Hydroxide/Magnesium Hydroxide Susp (30 mL) ONE (15:01)
[2017-05-12 15:12] LABS: BASO % 0.2 % (0.0-2.0); EOS % 0.3 % (0.0-4.0); LYMPH % 14.2 % (20.0-40.0); MEAN CELL VOLUME 78.2 fL (81.0-99.0); MEAN CORPUSCULAR HEMOGLOBIN 25.8 pg (27.0-31.0); MEAN PLATELET VOLUME 8.9 fL (7.2-11.7); MONO # 0.7 K/uL (0.0-0.8); MONO % 9.7 % (0.0-10.0); NEUT # 5.2 K/uL (1.8-7.0); NEUT % 75.6 % (50.0-75.0); NRBC % 0.1 % (0.0-2.0); RBC 5.39 Mil/uL (3.80-5.20); RED CELL DISTRIBUTION WIDTH 13.6 % (11.5-14.5); WHITE BLOOD COUNT 6.9 K/uL (4.8-10.8)
[2017-05-12 15:13] LABS: HEMOGLOBIN 13.9 g/dL (11.0-16.0)
[2017-05-12 15:18] LABS: INR 1.2; PROTHROMBIN TIME 13.1 SECONDS (9.7-12.2)
[2017-05-12 15:42] LABS: ALBUMIN 4.1 g/dL (3.5-5.0); ALT/SGPT 48 U/L (9-52); GFR AFRICAN-AMERICAN > 60; GFR NON-AFRICAN AMERICAN > 60
[2017-05-12 15:55] LABS: ALB/GLOB RATIO 0.9 (1.0-2.1); AST/SGOT 64 U/L (14-36); BLOOD UREA NITROGEN 16 mg/dL (7-17); CALCIUM 8.6 mg/dl (8.6-10.4)
[2017-05-12 16:52] VITALS: BP 110/72; PULSE 72; RESP 16; TEMP 98.2
== END 2017-05-12 16:55 | disposition home or self-care (01) ==
LOC: C.ER 14:23
DX: K13.79 Other lesions of oral mucosa (principal); K59.00 Constipation, unspecified
CPT/HCPCS: 80053; 85025; 85610; 85730; 96374; 99284; J1885